=== PATIENT | female | born 1955 ===

== ENCOUNTER → 2024-02-02 01:00 | Outpatient (REF) | payer OTHER, SELFPAY | LOC: CLAB 01:00 | PROVIDERS: ATTENDING PHYSICIAN Orthopaedic Surgery | DX: S93.431A Sprain of tibiofibular ligament of right ankle, initial encounter (principal); S82.61XA Displaced fracture of lateral malleolus of right fibula, initial encounter for closed fracture; S82.871A Displaced pilon fracture of right tibia, initial encounter for closed fracture | CPT/HCPCS: 88304; 88311 ==